=== PATIENT | female | born 1970 | race Two or more races ===

== ENCOUNTER 2024-11-16 05:55 | Day surgery (SDC) | payer BC, SELFPAY ==
[2024-11-16] VITALS (10 sets, daily range): BP systolic 127–153; BP diastolic 60–85; BMI 27.4
[2024-11-16] MEDS: CELEBREX 200 MG PO (06:30)
[2024-11-16] MEDS: TYLENOL 1000 MG PO (06:30)
[2024-11-16] MEDS: NORMOSOL-R/PLASMALYTE-A 1000 IV (06:53)
[2024-11-16] MEDS: TRANSDERM-SCOP 1 PATCH TRANSDERM (06:55)
[2024-11-16] MEDS: DILAUDID 0.5 MG IV (08:20)
[2024-11-16] MEDS: DEMEROL 12.5 MG IV (08:39)
--- NOTE | 2024-11-16 08:44 | SUR.PHASEI ---
received patient with c/o pain 6/10 right thumb, medicated with dilaudid with no relief; shivers - medicated with demerol for same. Pt with known history of PONV; plan to cautiously medicate for pain; patient agrees.
[2024-11-16] MEDS: ZOFRAN 4 MG IV (08:57)
== END 2024-11-16 11:15 | disposition home or self-care (01) ==
LOC: SDS 05:55
PROVIDERS: ATTENDING PHYSICIAN Orthopaedic Surgery
DX: S63.641A Sprain of metacarpophalangeal joint of right thumb, initial encounter (principal); W01.0XXA Fall on same level from slipping, tripping and stumbling without subsequent striking against object, initial encounter
CPT/HCPCS: 26540; C1713